=== PATIENT | male | born 1965 | race Caucasian/White ===

== ENCOUNTER 2017-02-25 23:01 | Inpatient (IN) | payer BC ==
[~2017-02-25] VITALS: Ht 175.3 cm; Wt 97.0 kg
--- NOTE | 2017-02-25 23:19 | PD ---
HPI Chief Complaint: syncope Time Seen by Provider: 23:18 Travel History International Travel<30 days: No Contact w/Intl Traveler<30days: No Traveled to known affect area: No History of Present Illness HPI 51-year-old male brought to the emergency room by EMS after having 2 syncopal episodes today. Currently patient is awake and answering questions appropriately. He says that he was walking fast towards his car and it was hot and he felt lightheaded and passed out. His son was there who witnessed it. Says he appeared very pale and diaphoretic after the event. He came back after a minute or 2. As per the paramedics he was noticed to be apneic for 30 seconds or so. No CPR was performed. Currently his vital signs are within normal limit. Patient says that he has had 2 more episodes in the past one month and his primary care and mail manager has investigated is thoroughly. He has had MRI, echocardiogram in few of the tests and so far he was told that he has a valve issue. He has not had any Holter monitoring done however. Patient says that they are supposed to schedule that. Patient is from [place] and is here on a vacation. He denied of any chest pain during or after this episode. Denies any headache. [facility] Past Medical History Narrative Medical List of his past medical, surgical, social and family history was reviewed from the nursing note. Social History Tobacco Use: No Allergies-Medications (Allergen,Severity, Reaction): Coded Allergies: No Known Allergies (Unverified , 02/26/17) Comments No known drug allergies. Reported Meds & Prescriptions Reported Meds & Active Scripts Active Reported Pravastatin 20 Mg Tab 20 Mg PO HS Amlodipine-Benazepril 10-20 Mg Cap 1 Cap PO DAILY Metformin (Metformin HCl) 1,000 Mg Tab 1,000 Mg PO BIDPC With meals Narrative Medication Awaiting for the nurse to do the medical reconciliation. Review of Systems Except as stated in HPI: all other systems reviewed are Neg Physical Exam Narrative GENERAL: Awake, alert, no obvious distress SKIN: Focused skin assessment warm/dry. HEAD: Atraumatic. Normocephalic. EYES: Pupils equal and round. No scleral icterus. No injection or drainage. ENT: No nasal bleeding or discharge. Mucous membranes pink and moist. NECK: Trachea midline. No JVD. CARDIOVASCULAR: Regular rate and rhythm. No murmur appreciated. RESPIRATORY: No accessory muscle use. Clear to auscultation. Breath sounds equal bilaterally. GASTROINTESTINAL: Abdomen soft, non-tender, nondistended. Hepatic and splenic margins not palpable. MUSCULOSKELETAL: No obvious deformities. No clubbing. No cyanosis. No edema. NEUROLOGICAL: Awake and alert. No obvious cranial nerve deficits. Motor grossly within normal limits. Normal speech. PSYCHIATRIC: Appropriate mood and affect; insight and judgment normal. Data Data Last Documented VS Vital Signs Date Time Temp Pulse Resp B/P Pulse Ox O2 Delivery O2 Flow Rate FiO2 02/25/17 23:48 97 Room Air 02/25/17 23:48 96 13 115/66 98 16 120/72 100 18 123/75 02/25/17 23:20 98.5 Orders Electrocardiogram (02/25/17 23:32) Basic Metabolic Panel (Bmp) (02/25/17 23:32) Ckmb (Isoenzyme) Profile (02/25/17 23:32) Complete Blood Count With Diff (02/25/17 23:32) Magnesium (Mg) (02/25/17 23:32) Prothrombin Time / Inr (Pt) (02/25/17 23:32) Act Partial Throm Time (Ptt) (02/25/17 23:32) Troponin I (02/25/17 23:32) Chest, Single Ap (02/25/17 23:32) Ecg Monitoring (02/25/17 23:32) Bilateral Bp Monitoring (02/25/17 23:32) Iv Access Insert/Monitor (02/25/17 23:32) Oximetry (02/25/17 23:32) Oxygen Administration (02/25/17 23:32) Orthostatic Vital Signs (02/25/17 23:32) CKMB (02/25/17 23:45) CKMB% (02/25/17 23:45) Admit Order (Ed Use Only) (02/26/17 00:46) Place In Observation (02/26/17 ) Vital Signs (Adult) Q4H (02/26/17 00:46) Activity Oob With Assistance (02/26/17 00:46) Calendering Machine Operator / Telemetry .CONTINUOUS (02/26/17 00:46) Diet Heart Healthy (02/26/17 Breakfast) Basic Metabolic Panel (Bmp) (02/27/17 06:00) Complete Blood Count With Diff (02/27/17 06:00) Creatine Kinase (Cpk) (02/26/17 06:00) Creatine Kinase (Cpk) (02/26/17 12:00) Troponin I (02/26/17 06:00) Troponin I (02/26/17 12:00) Electrocardiogram (02/26/17 06:00) Electrocardiogram (02/26/17 12:00) Labs Laboratory Tests Test 02/25/17 23:45 White Blood Count 9.4 TH/MM3 Red Blood Count 4.62 MIL/MM3 Hemoglobin 13.4 GM/DL Hematocrit 38.9 % Mean Corpuscular Volume 84.1 FL Mean Corpuscular Hemoglobin 28.9 PG Mean Corpuscular Hemoglobin 34.4 % Concent Red Cell Distribution Width 12.8 % Platelet Count 236 TH/MM3 Mean Platelet Volume 7.8 FL Neutrophils (%) (Auto) 69.5 % Lymphocytes (%) (Auto) 19.2 % Monocytes (%) (Auto) 7.2 % Eosinophils (%) (Auto) 3.2 % Basophils (%) (Auto) 0.9 % Neutrophils # (Auto) 6.5 TH/MM3 Lymphocytes # (Auto) 1.8 TH/MM3 Monocytes # (Auto) 0.7 TH/MM3 Eosinophils # (Auto) 0.3 TH/MM3 Basophils # (Auto) 0.1 TH/MM3 CBC Comment DIFF FINAL Differential Comment Prothrombin Time 11.0 SEC Prothromb Time International 1.0 RATIO Ratio Activated Partial 26.3 SEC Thromboplast Time Sodium Level 138 MEQ/L Potassium Level 4.0 MEQ/L Chloride Level 106 MEQ/L Carbon Dioxide Level 22.9 MEQ/L Anion Gap 9 MEQ/L Blood Urea Nitrogen 20 MG/DL Creatinine 0.88 MG/DL Estimat Glomerular Filtration 91 ML/MIN Rate Random Glucose 178 MG/DL Calcium Level 8.6 MG/DL Magnesium Level 1.5 MG/DL Total Creatine Kinase 176 U/L Creatine Kinase MB 2.4 NG/ML Troponin I 0.09 NG/ML [facility] Medical Decision Making Medical Screen Exam Complete: Yes Emergency Medical Condition: Yes Medical Record Reviewed: Yes Interpretation(s) Twelve-lead EKG was reviewed by me. Normal sinus rhythm, normal axis, LVH, nonspecific ST-T wave changes. Heart rate of 99 bpm. Differential Diagnosis Cardiac arrhythmia, syncope, electrolyte abnormality Narrative Course 12:45 AM blood test results were specific for mildly elevated troponin. I'm really concerned of an abnormal cardiac rhythm like VT causing patient syncopal episodes. I tried to explain this to the best of my ability to patient and his and my concerns. In my opinion this patient should be admitted at least for a four-hour cardiac monitoring and consultation with cardiology. His orthostatic vital signs were done and were within normal limits. Patient and understands. I do not want to start him on heparin since patient does not have any chest pain and his troponin elevation could be from the arrhythmia. Procedures EKG Prior to Arrival: No Diagnosis Primary Impression: Syncope Qualified Code: R55 - Syncope, unspecified syncope type Additional Impressions: Elevated troponin I level possible cardiac dysrhythmia Admitting Information Admitting Physician Requests: it Chandrika Malloy MD Feb 25, 2017 23:19
[2017-02-25 23:20] VITALS: BP 127/72; PULSE 88; RESP 15; TEMP 98.5; O2SAT 97
[2017-02-25 23:48] VITALS: BP_SYST 115; BP_SYST 120; BP_SYST 123; BP_DIAS 66; BP_DIAS 72; BP_DIAS 75; RESP 13; RESP 16; RESP 18; O2SAT 97
[2017-02-25 23:54] LABS: AUTOMATED NEUTROPHIL # 6.5 TH/MM3 (1.8-7.7); BASOPHIL # 0.1 TH/MM3 (0-0.2); BASOPHIL % 0.9 % (0.0-2.0); EOSINOPHIL # 0.3 TH/MM3 (0-0.4); EOSINOPHIL % 3.2 % (0.0-4.0); HEMATOCRIT 38.9 % (39.0-51.0); HEMO FLAGS DIFF FINAL; LYMPH % 19.2 % (9.0-44.0); LYMPHOCYTE # 1.8 TH/MM3 (1.0-4.8); MEAN CELL VOLUME 84.1 FL (80.0-100.0); MEAN CORPUSCULAR HEMOGLOBIN 28.9 PG (27.0-34.0); MEAN CORPUSCULAR HGB CONC 34.4 % (32.0-36.0); MONO % 7.2 % (0.0-8.0); NEUT % 69.5 % (16.0-70.0); PLATELET COUNT 236 TH/MM3 (150-450); RED BLOOD COUNT 4.62 MIL/MM3 (4.50-5.90); RED CELL DISTRIBUTION WIDTH 12.8 % (11.6-17.2); WHITE BLOOD COUNT 9.4 TH/MM3 (4.0-11.0)
[2017-02-26] VITALS (8 sets, daily range): BP systolic 103–118; BP diastolic 67–72; PULSE 75–97; RESP 16–24; TEMP 98–98.3; O2SAT 95–99
[2017-02-26 00:06] LABS: APTT (PATIENT) 26.3 SEC (24.3-30.1)
[2017-02-26 00:08] LABS: ANION GAP 9 MEQ/L (5-15); BICARBONATE 22.9 MEQ/L (21.0-32.0); BLOOD UREA NITROGEN 20 MG/DL (7-18); CHLORIDE 106 MEQ/L (98-107); GLOMERULAR FILTRATION RATE 91 ML/MIN (>89); MAGNESIUM 1.5 MG/DL (1.5-2.5); SODIUM (NA) 138 MEQ/L (136-145)
[2017-02-26 00:14] LABS: CREATINE KINASE 176 U/L (39-308)
--- NOTE | 2017-02-26 00:18 | RADRPT ---
EXAM DATE/TIME: 02/25/2017 23:47 [facility] COMPARISON: No previous studies available for comparison. INDICATIONS : Syncopal episode. Weakness. MEDICAL HISTORY : None. SURGICAL HISTORY : None. ENCOUNTER: Initial ACUITY: 1 day PAIN SCORE: 0/10 LOCATION: Bilateral chest FINDINGS: A single view of the chest demonstrates the lungs to be symmetrically aerated without evidence of mas s, infiltrate or effusion. The cardiomediastinal contours are unremarkable. Osseous structures are intact. CONCLUSION: No evidence of acute cardiopulmonary disease. Osmany Lott MD on February 26, 2017 at 0:16 Board Certified Radiologist. This report was verified electronically.
[2017-02-26 00:26] LABS: CKMB 2.4 NG/ML (0.5-3.6)
[2017-02-26] MEDS ORDERED: GLUCAGON 1 MG/ML VIAL OTHER PRN (09:45)
[2017-02-26] MEDS ORDERED: DEXTROSE 50% IN WATER 50 ML VIAL(D50) IV PRN (09:45)
--- NOTE | 2017-02-26 09:51 | HHI.HP ---
[facility] Service [facility] Primary Care Physician Non-Staff Admission Diagnosis syncope, elevated troponin Diagnoses: Chief Complaint: Syncope Travel History International Travel<30 Days: No Contact w/Intl Traveler <30 Da: No Traveled to Known Affected Are: No History of Present Illness This is a 51-year-old male past medical history of hypertension, type 2 diabetes , and hyperlipidemia who presented with syncope. Patient stated that episodes of syncope happened 2 months ago. First episode happened when he was working outside, he felt lightheadedness and he passed out. Second episode is when patient walked across the street and came back inside the house. He stated at that time his saw him gasping for air then passed out. Third episode happened when patient was outside again for less than 5 minutes then felt lightheadedness so went inside the pass out again. The most recent episode that brought him into the emergency department today was when patient walked quickly to get his 's medication where he felt lightheadedness and passed out for about 2 minutes. Patient denies any chest pain, shortness of breathing , palpitations, lightheadedness or dizziness during that episode. He stated that the paramedics told him that everything was okay. When he woke up he remembered everything that happened. 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 Patient stated that he was scheduled for a RADHA. He stated because of this abnormality stress test was canceled. At the moment patient is asymptomatic. Review of Systems Constitutional: DENIES: Diaphoretic episodes, Fatigue, Fever, Weight gain, Weight loss, Chills, Dizziness, Change in appetite, Night Sweats Endocrine: DENIES: Heat/cold intolerance, Polydipsia, Polyuria, Polyphagia Eyes: DENIES: Blurred vision, Diplopia, Eye inflammation, Eye pain, Vision loss , Photosensitivity, Double Vision Ears, nose, mouth, throat: DENIES: Tinnitus, Hearing loss, Vertigo, Nasal discharge, Oral lesions, Throat pain, Hoarseness, Ear Pain, Running Nose, Epistaxis, Sinus Pain, Toothache, Odynophagia Respiratory: DENIES: Apneas, Cough, Snoring, Wheezing, Hemoptysis, Sputum production, Shortness of breath Cardiovascular: DENIES: Chest pain, Palpitations, Syncope, Dyspnea on Exertion , PND, Lower Extremity Edema, Orthopnea, Claudication Gastrointestinal: DENIES: Abdominal pain, Black stools, Bloody stools, Constipation, Diarrhea, Nausea, Vomiting, Difficulty Swallowing, Anorexia Genitourinary: DENIES: Sexual dysfunction, Urinary frequency, Urinary incontinence, Urgency, Hematuria, Dysuria, Nocturia, Penile Discharge, Testicular Pain, Testicular Swelling Musculoskeletal: DENIES: Joint pain, Muscle aches, Stiffness, Joint Swelling, Back pain, Neck pain Integumentary: DENIES: Abnormal pigmentation, Nail changes, Pruritus, Rash Hematologic/lymphatic: DENIES: Bruising, Lymphadenopathy Immunologic/allergic: DENIES: Eczema, Urticaria Neurologic: DENIES: Abnormal gait, Headache, Localized weakness, Paresthesias, Seizures, Speech Problems, Tremor, Poor Balance Psychiatric: DENIES: Anxiety, Confusion, Mood changes, Depression, Hallucinations, Agitation, Suicidal Ideation, Homicidal Ideation, Delusions Past Family Social History Past Medical History Hypertension Type 2 diabetes Hyperlipidemia Past Surgical History Appendectomy Reported Medications Patient stated that he is on metformin. Medications not updated. Order placed for nurse to update patient's medication. Allergies: Coded Allergies: No Known Allergies (Unverified , 02/26/17) Family History Mother has cardiovascular disease. Father had peripheral vascular disease. Social History Patient lives in [place] with his . Denies tobacco, alcohol or illicit drug use. He stopped tobacco use about 20 years ago. He smoked 1 pack per day for 2 -3 years. Physical Exam Vital Signs Vital Signs Date Time Temp Pulse Resp B/P Pulse Ox O2 Delivery O2 Flow Rate FiO2 02/26/17 08:14 82 17 117/70 99 Room Air 02/26/17 05:32 75 16 103/67 98 Room Air 02/26/17 03:35 75 16 108/70 99 Room Air 02/25/17 23:48 97 Room Air 02/25/17 23:48 96 13 115/66 98 16 120/72 100 18 123/75 02/25/17 23:48 97 Room Air 02/25/17 23:25 97 Room Air 02/25/17 23:20 98.5 88 15 127/72 97 Physical Exam GENERAL: This is a well-nourished, well-developed patient, in no apparent distress. SKIN: No rashes, ecchymoses or lesions. Cool and dry. HEAD: Atraumatic. Normocephalic. No temporal or scalp tenderness. EYES: Pupils equal round and reactive. Extraocular motions intact. No scleral icterus. No injection or drainage. ENT: Nose without bleeding, purulent drainage or septal hematoma. Throat without erythema, tonsillar hypertrophy or exudate. Uvula midline. Airway patent. NECK: Trachea midline. No JVD or lymphadenopathy. Supple, nontender, no meningeal signs. CARDIOVASCULAR: Regular rate and rhythm without murmurs, gallops, or rubs. RESPIRATORY: Clear to auscultation. Breath sounds equal bilaterally. No wheezes , rales, or rhonchi. GASTROINTESTINAL: Abdomen soft, non-tender, nondistended. No hepato-splenomegaly , or palpable masses. No guarding. MUSCULOSKELETAL: Extremities without clubbing, cyanosis, or edema. No joint tenderness, effusion, or edema noted. No calf tenderness. Negative Homans sign bilaterally. NEUROLOGICAL: Awake and alert. Cranial nerves II through XII intact. Motor and sensory grossly within normal limits. Five out of 5 muscle strength in all muscle groups. Normal speech. Laboratory Laboratory Tests Test 02/25/17 02/26/17 23:45 05:37 White Blood Count 9.4 Red Blood Count 4.62 Hemoglobin 13.4 Hematocrit 38.9 Mean Corpuscular Volume 84.1 Mean Corpuscular Hemoglobin 28.9 Mean Corpuscular Hemoglobin 34.4 Concent Red Cell Distribution Width 12.8 Platelet Count 236 Mean Platelet Volume 7.8 Neutrophils (%) (Auto) 69.5 Lymphocytes (%) (Auto) 19.2 Monocytes (%) (Auto) 7.2 Eosinophils (%) (Auto) 3.2 Basophils (%) (Auto) 0.9 Neutrophils # (Auto) 6.5 Lymphocytes # (Auto) 1.8 Monocytes # (Auto) 0.7 Eosinophils # (Auto) 0.3 Basophils # (Auto) 0.1 CBC Comment DIFF FINAL Differential Comment Prothrombin Time 11.0 Prothromb Time International 1.0 Ratio Activated Partial 26.3 Thromboplast Time Sodium Level 138 Potassium Level 4.0 Chloride Level 106 Carbon Dioxide Level 22.9 Anion Gap 9 Blood Urea Nitrogen 20 Creatinine 0.88 Estimat Glomerular Filtration 91 Rate Random Glucose 178 Calcium Level 8.6 Magnesium Level 1.5 Total Creatine Kinase 176 144 Creatine Kinase MB 2.4 Troponin I 0.09 0.10 Result Diagram: 02/25/17 2345 02/25/17 2345 Imaging Last Impressions Chest X-Ray 02/25/17 2332 Signed Impressions: Service Date/Time: Saturday, February 25, 2017 23:47 - CONCLUSION: No evidence of acute cardiopulmonary disease. Osmayn Lott MD Assessment and Plan Assessment and Plan 51-year-old male with hypertension, type 2 diabetes, hyperlipidemia, and heart murmur secondary to a stenosis who presented with multiple episodes of syncope Syncope -This was being worked up in [place] by his corporate development intern. Per patient it is due to a valve stenosis. His he is unsure which valve. -Labs reviewed and only significant for mildly elevated troponins. -Will put an order to have nurse obtain recent echo from his corporate development intern. -Monitor patient on telemetry for any arrhythmias. -Consult corporate development intern for further recommendations. Type 2 diabetes, hyperlipidemia, hypertension -At the moment patient is normotensive. -Order placed for nurse to update patient's medication list. -Will put him on insulin sliding scale. DVT prophylaxis -Lovenox Code Status full code Discussed Condition With patient Chioma Headley MD Feb 26, 2017 09:51
[2017-02-26] MEDS ORDERED: AMLO10CA PO (09:55)
[2017-02-26] MEDS ORDERED: METF1000 PO (09:55)
[2017-02-26] MEDS ORDERED: PRAV20TA2 PO (09:55)
[2017-02-26] MEDS: ENOXAPARIN SODIUM 40 MG/0.4 ML SYRINGE SQ SCH (10:00)
[2017-02-26] MEDS: INSULIN ASPART SUPPLEMENTAL SCALE SQ SCH ×3 (11:00→21:00)
--- NOTE | 2017-02-26 11:07 | PD.CONS ---
HPI Consult Requested By Primary Care Physician Non-Staff History of Present Illness 51-year-old male past medical history of hypertension, type 2 diabetes, hyperlipidemia and unspecified heart murmur admitted with syncope. Patient reports 3 episodes of syncope in the last 2 month. Patient denies any chest pain , shortness of breathing, palpitations, lightheadedness or dizziness during that episode. Associates the episodes with overheating. Patient was being worked up by the slack line yarder in [place] no records available for review. Review of Systems Consitutional: DENIES: Fatigue, Fever, Chills, Weight gain, Weight loss Eyes: DENIES: Amaurosis Fugax, Change in vision HEENT: DENIES: Lightheadedness, Change in hearing Respiratory: DENIES: See HPI, Cough, Snoring, Shortness of breath, Wheezing, Sputum production Cardiovascular: DENIES: See HPI, Chest pain, Palpitations, Syncope, Tachycardia Gastrointestinal: DENIES: Nausea, Vomiting, Change in bowel habits, Reflux, Bloody stools, Melena Integumentary: DENIES: Rash Neurologic: DENIES: Tingling or numbness, Memory problems, Poor Balance, Stroke symptoms Musculoskeletal: DENIES: Joint pain, Muscle pain, Limited range of motion, Back pain Psychiatric: DENIES: Anxiety, Depression, Sleep disturbances Hematologic: DENIES: Bruising tendencies, Bleeding tendencies Endocrine: DENIES: Weight gain, Weight loss, Thyroid disease Past Family Social History Allergies: Coded Allergies: No Known Allergies (Unverified , 02/26/17) Past Medical History Hypertension Type 2 diabetes Hyperlipidemia Past Surgical History Appendectomy Reported Medications Reported Meds & Active Scripts Active Reported Pravastatin 20 Mg Tab 20 Mg PO HS Amlodipine-Benazepril 10-20 Mg Cap 1 Cap PO DAILY Metformin (Metformin HCl) 1,000 Mg Tab 1,000 Mg PO BIDPC With meals Active Ordered Medications Current Medications Medications (Trade) Dose Ordered Sig/Elliott Route Start Time Stop Time Status Last Admin (D50w (Vial) Inj) 50 ml UNSCH PRN IV 02/26/17 09:45 (Glucagon Inj) 1 mg UNSCH PRN OTHER 02/26/17 09:45 (Lovenox Inj) 40 mg Q24H SQ 02/26/17 10:00 Family History Mother CAD Social History Denies Alcohol abuse Denies Illicit Drug Use Denies Tobacco use Physical Exam Vital Signs Vital Signs Date Time Temp Pulse Resp B/P Pulse Ox O2 Delivery O2 Flow Rate FiO2 02/26/17 08:14 82 17 117/70 99 Room Air 02/26/17 05:32 75 16 103/67 98 Room Air 02/26/17 03:35 75 16 108/70 99 Room Air 02/25/17 23:48 97 Room Air 02/25/17 23:48 96 13 115/66 98 16 120/72 100 18 123/75 02/25/17 23:48 97 Room Air 02/25/17 23:25 97 Room Air 02/25/17 23:20 98.5 88 15 127/72 97 Physical Exam GENERAL: Well-nourished, well-developed patient. SKIN: Warm and dry. HEAD: Normocephalic. EYES: No scleral icterus. No injection or drainage. NECK: Supple, trachea midline. No JVD or lymphadenopathy. CARDIOVASCULAR: Regular rate and rhythm 3/6 [place] no gallops, or rubs. RESPIRATORY: Breath sounds equal bilaterally. No accessory muscle use. GASTROINTESTINAL: Abdomen soft, non-tender, nondistended. EXTREMITIES: No cyanosis, or edema. NEUROLOGICAL: Awake, alert, and oriented x 3. Non-focal. Laboratory Laboratory Tests Test 02/25/17 02/26/17 23:45 05:37 White Blood Count 9.4 Red Blood Count 4.62 Hemoglobin 13.4 Hematocrit 38.9 Mean Corpuscular Volume 84.1 Mean Corpuscular Hemoglobin 28.9 Mean Corpuscular Hemoglobin 34.4 Concent Red Cell Distribution Width 12.8 Platelet Count 236 Mean Platelet Volume 7.8 Neutrophils (%) (Auto) 69.5 Lymphocytes (%) (Auto) 19.2 Monocytes (%) (Auto) 7.2 Eosinophils (%) (Auto) 3.2 Basophils (%) (Auto) 0.9 Neutrophils # (Auto) 6.5 Lymphocytes # (Auto) 1.8 Monocytes # (Auto) 0.7 Eosinophils # (Auto) 0.3 Basophils # (Auto) 0.1 CBC Comment DIFF FINAL Differential Comment Prothrombin Time 11.0 Prothromb Time International 1.0 Ratio Activated Partial 26.3 Thromboplast Time Sodium Level 138 Potassium Level 4.0 Chloride Level 106 Carbon Dioxide Level 22.9 Anion Gap 9 Blood Urea Nitrogen 20 Creatinine 0.88 Estimat Glomerular Filtration 91 Rate Random Glucose 178 Calcium Level 8.6 Magnesium Level 1.5 Total Creatine Kinase 176 144 Creatine Kinase MB 2.4 Troponin I 0.09 0.10 Result Diagram: 02/25/17 2345 02/25/17 2345 Imaging Last Impressions Chest X-Ray 02/25/17 2332 Signed Impressions: Service Date/Time: Saturday, February 25, 2017 23:47 - CONCLUSION: No evidence of acute cardiopulmonary disease. Osmany Ltot MD Assessment and Plan Problem List: (1) Syncope Assessment and Plan: 51 y/o M admitted with syncope, hx of heart murmur ? Aortic stenosis on physical exam and cardiac risk factors obesity, HTN and HLD. Minimally elevated troponin and non specific ST changes and LVH on 12 lead EKG. Ddx at this time broad vs.ACS vs Neuro. However if this is indeed severe with syncope as the presenting symptom he will need definitive evaluation CT evaluation for AVR , in view that per scientific literature mortality is high. Recommendations: - Telemetry Monitoring - Cycle Cardiac enzymes x3 - 2Dechocardiogram - Carotid Doppler - Head CT - Start Aspirin 81mg PO daily - Cont home meds for HTN and HLD - Get outside cardiology records from [place] Thank you for the opportunity to participate in the care of this patient Further therapy to be determine Case discussed with attending of record (2) Elevated troponin I level Problem Qualifiers (1) Syncope: Qualified Code: R55 - Syncope, unspecified syncope type Edwar Erazo MD Feb 26, 2017 11:06
--- NOTE | 2017-02-26 11:29 | EKG ---
Date Performed: 02/25/2017 Time Performed: 23:18:44 PTAGE: 51 years EKG: Normal Sinus rhythm Suspected LVH with repolarization changes ABNORMAL ECG NO PREVIOUS TRACING DOCTOR: Mumtaz Bedolla Interpretating Date/Time 02/26/2017 11:28:48
--- NOTE | 2017-02-26 11:30 | EKG ---
Date Performed: 02/26/2017 Time Performed: 05:28:00 PTAGE: 51 years EKG: Sinus rhythm POSSIBLE LEFT ATRIAL ENLARGEMENT LEFT VENTRICULAR HYPERTROPHY AND ST-T CHANGE ABNORMAL ECG PREVIOUS TRACING 02/25/2017 Left atrial abnormality new from the prior tracing. DOCTOR: Mumtaz Bedolla Interpretating Date/Time 02/26/2017 11:29:14
[2017-02-26] MEDS: LISINOPRIL 20 MG TAB PO SCH (16:44)
[2017-02-26] MEDS: amLODIPine BESYLATE 5 MG TAB PO SCH (16:44)
[2017-02-26] MEDS: ASPIRIN EC 81 MG TABEC PO SCH (16:44)
[2017-02-26] MEDS: PRAVASTATIN SOD 20 MG TAB PO SCH (23:29)
[2017-02-27 01:58] VITALS: BP 105/70; PULSE 74; RESP 18; TEMP 98.8; O2SAT 98
[2017-02-27 05:46] LABS: AUTOMATED NEUTROPHIL # 4.4 TH/MM3 (1.8-7.7); BASOPHIL % 0.5 % (0.0-2.0); EOSINOPHIL # 0.3 TH/MM3 (0-0.4); EOSINOPHIL % 3.7 % (0.0-4.0); HEMATOCRIT 41.2 % (39.0-51.0); HEMO FLAGS DIFF FINAL; LYMPH % 34.6 % (9.0-44.0); LYMPHOCYTE # 2.9 TH/MM3 (1.0-4.8); MEAN CELL VOLUME 85.4 FL (80.0-100.0); MEAN CORPUSCULAR HEMOGLOBIN 28.7 PG (27.0-34.0); MEAN CORPUSCULAR HGB CONC 33.5 % (32.0-36.0); MONO % 8.1 % (0.0-8.0); NEUT % 53.1 % (16.0-70.0); PLATELET COUNT 222 TH/MM3 (150-450); RED BLOOD COUNT 4.82 MIL/MM3 (4.50-5.90); RED CELL DISTRIBUTION WIDTH 12.6 % (11.6-17.2); WHITE BLOOD COUNT 8.3 TH/MM3 (4.0-11.0)
[2017-02-27 06:29] LABS: BICARBONATE 28.5 MEQ/L (21.0-32.0); POTASSIUM 3.7 MEQ/L (3.5-5.1)
[2017-02-27] MEDS: INSULIN ASPART SUPPLEMENTAL SCALE SQ SCH ×3 (06:41→17:46)
[2017-02-27 07:40] VITALS: BP 108/70; PULSE 83; RESP 15; TEMP 97.8; O2SAT 97
[2017-02-27 07:50] VITALS: PULSE 77
[2017-02-27] MEDS ORDERED: NON-FORMULARY DRUG (Amlodipine-Benazepril 1 CAP) PO SCH (09:00)
[2017-02-27] MEDS: ENOXAPARIN SODIUM 40 MG/0.4 ML SYRINGE SQ SCH (10:49)
[2017-02-27] MEDS: ASPIRIN EC 81 MG TABEC PO SCH (10:50)
[2017-02-27] MEDS: LISINOPRIL 20 MG TAB PO SCH (10:50)
[2017-02-27] MEDS: amLODIPine BESYLATE 5 MG TAB PO SCH (10:50)
[2017-02-27 11:50] VITALS: BP 132/75; PULSE 96; RESP 15; TEMP 98.2; O2SAT 96
--- NOTE | 2017-02-27 16:03 | HHI.PR ---
Subjective Remarks Follow-up for syncope and severe aortic stenosis Patient denies any chest pain, lightheadedness, shortness of breathing, palpitations or any concerns. Telemetry shows brief episodes of sinus tachycardia. Family at the bedside very emotional and adamant that patient be transferred to [facility]. I called patient's powerhouse electrician Dr. Kolton Echols and she is out of town for the week. Her nurse practitioner will not be back until tomorrow. Per staff they stated that they would not recommend patient to be transferred and that she should be treated here. Patient refused to see Dr. Russell. d/w Dr. Russell and stated that patient has a high mortality and he does not recommend discharge and if patient is discharged it would be AGAINST MEDICAL ADVICE. Family wanted a second opinion. Consulted Dr. Bess. Objective Vitals Vital Signs Date Time Temp Pulse Resp B/P Pulse Ox O2 Delivery O2 Flow Rate FiO2 02/27/17 11:50 98.2 96 15 132/75 96 02/27/17 07:40 97.8 83 15 108/70 97 02/27/17 01:58 98.8 74 18 105/70 98 02/26/17 23:16 75 02/26/17 19:56 98.0 96 18 105/67 96 02/26/17 16:08 98.1 85 24 107/68 95 I/O 02/26/17 02/26/17 02/26/17 02/27/17 02/27/17 02/27/17 07:00 15:00 23:00 07:00 15:00 23:00 Intake Total 200 ml Output Total 675 ml 600 ml Balance -675 ml -400 ml Intake Oral 200 ml Output Urine Total 675 ml 600 ml Result Diagram: 02/27/17 0521 02/27/17 05 Objective Remarks GENERAL: in NAD CARDIOVASCULAR: Regular rate and rhythm. 4/6 systolic heart murmur RESPIRATORY: Breath sounds equal bilaterally. No accessory muscle use. GASTROINTESTINAL: Abdomen soft, non-tender, nondistended. MUSCULOSKELETAL: No cyanosis, or edema. BACK: Nontender without obvious deformity. No CVA tenderness. Medications and IVs Current Medications Dextrose (D50w (Vial) Inj) 50 ml UNSCH PRN IV HYPOGLYCEMIA-SEE COMMENTS; Start 02/26/17 at 09:45 Glucagon (Glucagon Inj) 1 mg UNSCH PRN OTHER HYPOGLYCEMIA-SEE COMMENTS; Start 02/26/17 at 09:45 Insulin Aspart (NovoLOG SUPPLEMENTAL SCALE) 1 ACHS SLIDING SCALE SQ Last administered on 02/27/17 13:28; Start 02/26/17 at 11:00 Enoxaparin Sodium (Lovenox Inj) 40 mg Q24H SQ Last administered on 02/27/17 10 :49; Start 02/26/17 at 10:00 Aspirin (Ecotrin Ec) 81 mg DAILY PO Last administered on 02/27/17 10:50; Start 02/26/17 at 15:30 Pravastatin Sodium (Pravachol) 20 mg HS PO Last administered on 02/26/17 23:29 ; Start 02/26/17 at 21:00 Non-Formulary Medication 1 cap DAILY PO BPM; Start 02/27/17 at 09:00; Stop 02/27 at 09:00; Status DC Amlodipine Besylate (Norvasc) 10 mg DAILY PO Last administered on 02/27/17 10: 50; Start 02/26/17 at 15:30 Lisinopril (Prinivil) 20 mg DAILY PO Last administered on 02/27/17 10:50; Start 02/26/17 at 15:30 A/P Assessment and Plan 51-year-old male with hypertension, type 2 diabetes, hyperlipidemia, and severe aortic stenosis who presented with multiple episodes of syncope Syncope -Most likely secondary to severe aortic stenosis. -ECHO report already requested but have not received a copy yet. -Patient's had a copy of the echo report on her phone which showed patient has severe aortic stenosis. -Most likely syncope secondary to severe aortic stenosis. Severe aortic stenosis -Dr. Russell consulted but patient wanted a second opinion. Dr. Russell stated patient cannot be discharge due to high mortality. -d/w Dr. Bess who recommended that patient be treated immediately since patient is symptomatic with syncope. -Patient refused to be treated at [place] and wants to be transferred. -Patient powerhouse electrician is not in town and there is no excepting powerhouse electrician at the moment. -Patient's stated that she works for [employer]house [employer] and will find an accepting powerhouse electrician. -Dealt with Dr. Bess in regards to this and he stated that if patient has an accepting powerhouse electrician and medical doctor patient can be transferred to [facility] in an ambulance. Elevated troponins, mildly elevated -Stable. -Patient most likely will need a cardiac catheterization. Type 2 diabetes, hyperlipidemia, hypertension -At the moment patient is normotensive so we will hold patient's antihypertensive medication for the moment. -Continue with the pravastatin. -Hold metformin pending possible procedure. Continue with the insulin sliding scale. DVT prophylaxis -Lovenox Discharge Planning At the moment patient does not want medical care here at [place]. He is not medically stable to be discharge. In order for patient to be transfer to [facility] he has to be an accepting powerhouse electrician and medical doctor. If accepted patient needs to be transfer in an ambulance. At the moment no accepting [employer], stated she knows cardiologists in the area and will find one. Patient refuse care but does not want to leave AMA. Chioma Headley MD Feb 27, 2017 16:03
--- NOTE | 2017-02-27 17:07 | EKG ---
Date Performed: 02/26/2017 Time Performed: 12:36:47 PTAGE: 51 years EKG: Sinus rhythm POSSIBLE LEFT ATRIAL ENLARGEMENT NONSPECIFIC ST & T-WAVE ABNORMALITY BORDERLINE ECG PREVIOUS TRACING : 02/26/2017 05.28 Compared to prior tracing no significant change DOCTOR: Frances Bess Interpretating Date/Time 02/27/2017 17:07:07
[2017-02-27 17:21] VITALS: BP 108/70; PULSE 91; RESP 18; TEMP 98.1; O2SAT 97
[2017-02-27] MEDS ORDERED: PRAVASTATIN SOD 20 MG TAB PO SCH (21:00)
[2017-02-27 21:09] VITALS: BP 128/82; PULSE 91; RESP 20; TEMP 98.1; O2SAT 96
[2017-02-27] MEDS: PRAVASTATIN SOD 20 MG TAB PO SCH (21:54)
--- NOTE | 2017-02-28 06:18 | MB ---
cc: RAMSES CONNOR MD DATE OF CONSULTATION 02/27/2017 REASON FOR CONSULTATION Cardiology consult second opinion. HISTORY OF PRESENT ILLNESS Mr. Parikh is a 51-year-old white male with a history of hypertension, diabetes, dyslipidemia and severe aortic stenosis. He presented after an episode of syncope which lasted about 2 minutes. He has not had any dizziness or chest pain, palpitations or shortness of breath preceding the episode. He is seen by a locksmith in [place] and [facility] was apparently planned in the near future. He was told he had severe aortic stenosis. PAST MEDICAL HISTORY Positive for - 1. Hypertension. 2. Type 2 diabetes mellitus. 3. Dyslipidemia. 4. History of appendectomy. 5. History of aortic stenosis as above. MEDICATIONS 1. Pravastatin. 2. amlodipine. 3. Benazepril. 4. Metformin. ALLERGIES None. SOCIAL HISTORY The patient does not smoke. He does not drink alcohol. FAMILY HISTORY Positive for heart disease. REVIEW OF SYSTEMS Otherwise negative. PHYSICAL EXAMINATION VITAL SIGNS: Blood pressure 132/75, pulse 96 and regular. HEENT: Negative. 2+ carotid upstrokes, no bruits. LUNGS: Clear. HEART: Regular with a 3/6 systolic ejection murmur at the right upper sternal border. No gallop. ABDOMEN: Soft. No bruits. EXTREMITIES: Without edema. 2+ distal pulses. NEUROLOGIC: Exam is grossly nonfocal. EKG Reviewed and showed normal sinus rhythm and LVH. LABORATORY DATA Hemoglobin 13.8, potassium 3.7, creatinine 0.9. Troponin 0.09, 0.10 and 0.07. CK 176, 144 and 151. Glucose 138 and 205. DIAGNOSES 1. Syncope 2. Severe aortic stenosis. 3. Mildly abnormal troponin. 4. Hypertension. 5. Dyslipidemia. 6. Diabetes mellitus. RECOMMENDATIONS Mr. Parikh was recently diagnosed with aortic stenosis. He has had multiple episodes of syncope. Rate of survival in patients with severe aortic stenosis and syncope is between 2 and 3 years. At this time I recommend cardiac catheterization to evaluate the severity of the aortic stenosis, also to evaluate for coronary disease since his troponin is mildly abnormal. The patient and his family do not want to proceed with cardiac catheterization her and they wish to be transferred to [place] where his apparently works for a medical facility. Given the patient's presentation, the patient cannot be discharged from the hospital at this time. If the finds an accepting locksmith, he could be possibly transferred by ambulance to [place] and could have cardiac catheterization there. I discussed with the patient and family and they will contact a locksmith in [place]. I do not believe transesophageal echocardiogram would have any benefit at this time and I believe left and right heart cardiac catheterization is indicated at this time during this hospitalization. Thank you. MD SPENCER Morgan/PO /4:36 PM /6:10 AM
== END 2017-02-27 22:39 | disposition short-term general hospital (02) | DRG 307 ==
LOC: NEPE 23:01 → NEDA 02-26 00:47 → INTOOBSV 02-26 00:47 → NEDH 02-26 05:30 → NEPGCP 02-26 10:07 → OBSVTOIN 02-27 16:11
PROVIDERS: ADMIT Hospitalist; ATTEND Hospitalist
DX: I35.0 Nonrheumatic aortic (valve) stenosis (principal); I10 Essential (primary) hypertension; R55 Syncope and collapse; E78.5 Hyperlipidemia, unspecified; E11.9 Type 2 diabetes mellitus without complications; Z79.84 Long term (current) use of oral hypoglycemic drugs; Z87.891 Personal history of nicotine dependence
CPT/HCPCS: 71010; 80048; 82550; 82552; 82948; 83735; 84484; 85025; 85610; 85730; 93005; G0378; J1650; J1815